=== PATIENT | female | born 1965 | race Caucasian/White ===

== ENCOUNTER 2021-06-13 20:16 | Observation (INO) | payer OTHER ==
[~2021-06-13] VITALS: Ht 165.1 cm; Wt 126.6 kg
--- NOTE | 2021-06-13 20:20 | NUR ---
RECEIVED REPORT FROM [facility] DANDY Scott RN ON PATIENT. AWAITING PATIENT ARRIVAL VIA EMS.
--- NOTE | 2021-06-13 21:54 | NUR ---
PATIENT ADMITTED TO ROOM 328 VIA EMS, VS TAKEN. REPORT KAREN SHOULDER PAIN, REPORTS CHEST HEAVINESS HAS SUBSIDED AT THIS TIME. IV HEP GTT CONTINUES AT 1000 UNITS/HR. DENIES SOA/NAUSEA AT THIS TIME.
[2021-06-13 21:56] VITALS: BP 137/53; PULSE 72; TEMP 97.6
[2021-06-13] MEDS ORDERED: VIIBRYD40 MG PO (23:05)
[2021-06-13] MEDS ORDERED: VYVANSE50 MG PO (23:07)
[2021-06-13] MEDS ORDERED: DOXYCYCLINE 10100 MG PO (23:08)
[2021-06-13] MEDS ORDERED: METROGEL1% TOP (23:09)
[2021-06-13] MEDS ORDERED: COZAAR100 MG PO (23:11)
[2021-06-13] MEDS ORDERED: NORVASC 10MG10 MG PO (23:12)
[2021-06-13] MEDS ORDERED: MOBIC15 MG PO (23:12)
[2021-06-13] MEDS ORDERED: PRILOSEC 20MG20 MG PO (23:13)
[2021-06-13] MEDS ORDERED: VITAMIN D31000 I1 PO (23:16)
[2021-06-13] MEDS ORDERED: BIOTIN10000 MC1 PO (23:17)
[2021-06-13] MEDS ORDERED: MAGNESIUM CITRATE PO (23:20)
[2021-06-13] MEDS ORDERED: CENTRUM SILVER1 TAB PO (23:21)
[2021-06-13] MEDS ORDERED: [UNRECOGNIZED DRUG - OTHER] PO (23:22)
[2021-06-13 23:26] LABS: PARTIAL THROMBOPLASTIN TIME 67.5 SECONDS (26.0-37.0)
--- NOTE | 2021-06-13 23:50 | NUR ---
HEPARIN DRIP RUNNING INITIALLY AT 1000 UNITS/HR (10ML/HR), HEP XA LAB RESULT 0.41, CHANGE RATE ACCORDING MED ORDER/HEPARIN PROTOCOL, DECREASED TO 900 UNITS/HR (9ML/HR) WITH CO-SIGNER TEAGAN CLAYTON, CHARGE NURSE. NEXT LAB DUE 0600 06/14/21 ENTERED INTO [employer]. PATIENT DENIES CHEST PAIN/SOA/NAUSEA AT THIS TIME. UP VOIDED, WITH STEADY GAIT.
[2021-06-14 04:29] VITALS: BP 140/85; PULSE 67; TEMP 98.1
[2021-06-14 06:26] LABS: BASO # 0.1 K/mm3 (0.0-0.2); EOS # 0.2 K/mm3 (0.0-0.7); EOS % 3.5 % (0-4.0); GRAN # 2.4 K/mm3 (1.4-6.5); GRAN % 39.1 % (42.2-75.2); HEMOGLOBIN 11.8 g/dl (12.5-16.0); LYMPH # 2.9 K/mm3 (1.2-3.4); LYMPH % 47.1 % (20.0-51.0); MEAN CELL VOLUME 84 fl (80.0-100.0); MEAN CORPUSCULAR HEMOGLOBIN 27 pg (27.0-31.0); MEAN CORPUSCULAR HGB CONC 32 g/dl (33.0-37.0); MEAN PLATELET VOLUME 8.2 fl (7.4-10.4); MONO # 0.6 K/mm3 (0.1-0.6); MONO % 9.1 % (1.7-9.3); PLATELET COUNT 299 K/mm3 (130-400); RED BLOOD COUNT 4.39 M/mm3 (4.10-5.30)
[2021-06-14 06:30] LABS: HEMATOCRIT 36.9 % (37.0-47.0)
[2021-06-14 06:54] LABS: CALCIUM 9.3 mg/dL (8.4-10.2); CREATININE, serum 0.74 mg/dL (0.57-1.11); POTASSIUM 3.9 mmol/L (3.5-4.5)
[2021-06-14 07:03] LABS: TROPONIN-I 0.042 ng/mL (0.00-0.033)
--- NOTE | 2021-06-14 07:12 | NUR ---
CHANGE OF SHIFT REPORT GIVEN TO DAY SHIFT NURSE, TYRA CLAYTON.
[2021-06-14 07:52] VITALS: BP 134/62; PULSE 67; TEMP 98.3
--- NOTE | 2021-06-14 09:13 | NUR ---
HEPARIN DOSE ADJUSTED PER PROTOCOLS INCREASED BY 1.5 NOW RUNNING @ 10.5 CHECKED WITH BRIGIDA CHEN RN.
--- NOTE | 2021-06-14 09:38 | NUR ---
PATIENT RESTING IN BE AFTER USING BR. PT DENIES NEEDS AT THIS TIME. PT HAS BEEN NPO IN ANTICIPATION OF CARDIAC INTERVENTIONS.
--- NOTE | 2021-06-14 10:30 | NUR ---
SW met with the patient to discuss discharge plan. The patient lives in [place] with her , Odilon (ph#[phone]). She reports independence with ADLs and does not have any DME. The patient's PCP is Dr. Jett Lutz and she receives her long-term meds from [facility] and her short-term meds from [facility]. She reports no difficulties obtaining her meds. The patient does not have a DPOA-HC in EMR, but she states that she does have one completed and that she designated her mother, Corrine Gonsalez (ph#[phone]). She states that Corrine lives in [place], [place] and that she should have the DPOA-HC at home. The patient plans to return home with her upon discharge. No additional needs at this time. *Discharge plan: home with *
--- NOTE | 2021-06-14 10:54 | NUR ---
CONTACTED 'S OFFICE FOR CONSULT. UNABLE TO REACH PHYSICIAN THROUGH NORMAL CHANNELS. SNOW GROOMER WILL CONTACT PHYSICIAN. PHYSICIAN IN [place] TODAY AND A MID LEVEL WILL COME SEE THIS PT PER CONVERSATION WITH SNOW GROOMER.
[2021-06-14 11:37] VITALS: BP 138/66; PULSE 66; TEMP 97.9
--- NOTE | 2021-06-14 13:12 | NUR ---
First visit from the car lubricator. prayed with patient. No other needs right now.
--- NOTE | 2021-06-14 13:26 | NUR ---
RATE CHANGE PER PROTOCOL CHECKED WITH BRIGIDA CHEN RN.
--- NOTE | 2021-06-14 14:57 | NUR ---
NEW IV STARTED BY ZENY AUTHORIZATION COORDINATOR. 20 G TO RFA, OLD SITE TO LFA BRUISING AROUND INSERTION SITE. MIKAL GUZMÁN RECCOMENDED TO START NEW IV SITE. WARM COMPRESS TO LFA. PT TOLERATED WELL.
[2021-06-14 15:31] VITALS: BP 127/79; PULSE 73; TEMP 98.1
--- NOTE | 2021-06-14 18:46 | NUR ---
NO CHANGE ON HEPARIN. THERAPUTIC LEVEL. 0.28 HEP XA
--- NOTE | 2021-06-14 19:15 | NUR ---
RECEIVED CHANGE OF SHIFT REPORT FROM DAY SHIFT NURSE. PATIENT UP IN CHAIR WITH NO NEEDS REPORTED.
[2021-06-14 19:51] VITALS: BP 122/78; PULSE 69; TEMP 98.5
[2021-06-15] VITALS (15 sets, daily range): BP systolic 99–140; BP diastolic 49–78; PULSE 58–100; TEMP 98–99
--- NOTE | 2021-06-15 01:30 | NUR ---
HEPARIN DRIP RATE INCREASED PER HEPARIN DRIP PROTOCOL TO 13.5 ML/HR (1350 U/HR), ORDER PUT IN FOR NEXT LAB DRAW FOR HEP XA.
--- NOTE | 2021-06-15 02:33 | NUR ---
PATIENT RESTING QUIETLY THROUGH MOST OF NIGHT WITH NO COMPLAINTS OR CONCERNS REPORTED THROUGH SHIFT. WEARS CPAP WITH SLEEP WITH BREATHING NONLABORED AND EVEN. IV HEPARIN INFUSING CONTINUES WITH NO PROBLEMS OBSERVED.
--- NOTE | 2021-06-15 06:54 | NUR ---
CHANGE OF SHIFT REPORT GIVEN TO DAY SHIFT NURSE, TYRA CLAYTON.
--- NOTE | 2021-06-15 07:19 | NUR ---
pt. resting in bed at this time, NPO status due to heart cath this afternoon, patient compliant with cares. abd. surgery in 2020 for lap band removal, incision site remains X3 on abd. seen, no redness, drainage, or discomfort. no c/o SOB, pain, or discomfort at this time. pleasant with this nurse. Heprin drip remains @ 13.5 units/hour
[2021-06-15 07:57] LABS: BASO # 0.1 K/mm3 (0.0-0.2); BASO % 1.5 % (0.0-2.0); EOS # 0.2 K/mm3 (0.0-0.7); EOS % 3.2 % (0-4.0); GRAN # 2.3 K/mm3 (1.4-6.5); GRAN % 43.1 % (42.2-75.2); HEMOGLOBIN 11.7 g/dl (12.5-16.0); LYMPH # 2.2 K/mm3 (1.2-3.4); LYMPH % 41.7 % (20.0-51.0); MEAN CELL VOLUME 85 fl (80.0-100.0); MEAN CORPUSCULAR HEMOGLOBIN 27 pg (27.0-31.0); MEAN CORPUSCULAR HGB CONC 32 g/dl (33.0-37.0); MEAN PLATELET VOLUME 8.2 fl (7.4-10.4); MONO # 0.5 K/mm3 (0.1-0.6); MONO % 10.1 % (1.7-9.3); PLATELET COUNT 300 K/mm3 (130-400); RED BLOOD COUNT 4.33 M/mm3 (4.10-5.30); REDCELL DISTRIBUTION WIDTH-CV 14.1 % (11.5-14.5)
[2021-06-15 07:58] LABS: HEMATOCRIT 36.7 % (37.0-47.0)
[2021-06-15 08:10] LABS: ALBUMIN 3.4 gm/dL (3.5-5.0); CALCIUM 9.4 mg/dL (8.4-10.2); CREATININE, serum 0.8 mg/dL (0.57-1.11); POTASSIUM 4.2 mmol/L (3.5-4.5)
--- NOTE | 2021-06-15 08:20 | NUR ---
PT AT THERAPUTIC LEVEL FROM HEP XA DRAW THIS AM.
--- NOTE | 2021-06-15 13:46 | NUR ---
heparin results in, 0.42, per heparin protocal rate change to 1250 units, new bag hung @ 8215. Primary Nurse FORREST Dior notified.
--- NOTE | 2021-06-15 13:50 | NUR ---
AGREE WITH STUDENTS ASSESSMENTS THIS SHIFT. PT RESTING IN BED AT THIS TIME.
--- NOTE | 2021-06-15 14:42 | NUR ---
HEPARIN STOPPED BY JACKLYN CLAYTON BROWNELL OPERATOR.
--- NOTE | 2021-06-15 14:47 | NUR ---
PT TO PROCEEDURE AT THIS TIME.
--- NOTE | 2021-06-15 15:14 | NUR ---
SEE MERGE DOCUMENTATION FOR MEDICATION ADMINISTRATION TIMES AND INTRA/POST PROCEDURE SEDATION ASSESSMENTS.
[2021-06-15 16:06] LABS: CHOLESTEROL RISK RATIO 2.5
--- NOTE | 2021-06-15 16:08 | NUR ---
PT TO ROOM 328 PER BED FROM INTERMISSION COORDINATOR. REPORT FROM JACKLYN CLAYTON @1600. PT IS A/OX4, LUNGS CTA, BOWEL SOUNDS PRESENT. TR BAND TO RW WITH 14 MLS. IV TO RFA. AT BEDSIDE. NO INTERVENTIONS DURING PROCEEDURE BY REPORT FROM JACKLYN CLAYTON.
--- NOTE | 2021-06-15 16:48 | NUR ---
PT SITTING UP EATING DINNER TR BAND INPLACE WITH SCANT DRAINAGE NOTED.
--- NOTE | 2021-06-15 18:23 | NUR ---
REMOVED 5 MLS AIR FROM TR BAND.
--- NOTE | 2021-06-15 20:00 | NUR ---
PT UP TO BATHROOM, HAS LARGE LOOSE STOOL. TO CHAIR AT BEDSIDE. TR BAND IN PLACE, NO DRAINAGE NOTED. PT DENIES PAIN. SL TO RFA FLUSHES WELL. REMOVED 5CC AIR FROM TR BAND AT THIS TIME.
--- NOTE | 2021-06-15 22:00 | NUR ---
REMOVED FINAL AMOUNT OF AIR FROM TR BAND, PUNCTURE SITE D/I TO RT WRIST. PT REMAINS IN CHAIR AT BEDSIDE.
--- NOTE | 2021-06-16 | NUR ---
PT IN BED WITH CPAP ON.
[2021-06-16 00:20] VITALS: BP 104/59; PULSE 69; TEMP 97.7
[2021-06-16 04:10] VITALS: BP 117/57; PULSE 70; TEMP 98.4
--- NOTE | 2021-06-16 07:00 | NUR ---
TAKES SCHEDULED AM MED, NO PAIN REPORTED THIS SHIFT.
[2021-06-16] MEDS ORDERED: TOPROL XL 25MG25 MG PO (07:39)
[2021-06-16] MEDS ORDERED: ASPIRIN 81M81 MG/TA2 PO (07:40)
[2021-06-16] MEDS ORDERED: LIPITOR 40MG TA40 MG PO (07:42)
[2021-06-16] MEDS ORDERED: NORVASC 10MG10 MG PO (07:45)
[2021-06-16 08:50] VITALS: BP 128/58; PULSE 73; TEMP 98.2
[2021-06-16] MEDS ORDERED: PLAVIX 75MG TAB75 MG PO (11:45)
[2021-06-16 13:00] VITALS: BP 116/70; PULSE 68; TEMP 98.2
== END 2021-06-16 13:52 | disposition home or self-care (01) ==
LOC: MEDICAL 20:16 → SURG 21:48
PROVIDERS: Internal Medicine; Nurse Practitioner; Student in an Organized Health Care Education/Training Program; ADMIT Student in an Organized Health Care Education/Training Program
DX: I21.4 Non-ST elevation (NSTEMI) myocardial infarction (principal); I25.10 Atherosclerotic heart disease of native coronary artery without angina pectoris; I10 Essential (primary) hypertension; K21.9 Gastro-esophageal reflux disease without esophagitis; K44.9 Diaphragmatic hernia without obstruction or gangrene; G47.33 Obstructive sleep apnea (adult) (pediatric); K76.89 Other specified diseases of liver; R61 Generalized hyperhidrosis; E66.9 Obesity, unspecified; R77.8 Other specified abnormalities of plasma proteins; R60.0 Localized edema; G47.00 Insomnia, unspecified; L71.9 Rosacea, unspecified; F32.9 Major depressive disorder, single episode, unspecified; F41.9 Anxiety disorder, unspecified; Z79.899 Other long term (current) drug therapy
CPT/HCPCS: 99232-AI; G0378; J1644; J1650; J2250; J3010; Q9967